=== PATIENT | female | born 1945 | race Caucasian/White ===

== ENCOUNTER 2018-03-16 12:02 | Emergency (ER) | payer OTHER ==
[~2018-03-16] VITALS: Ht 154.9 cm; Wt 62.6 kg
[2018-03-16 12:12] VITALS: BP_SYST 137
[2018-03-16 12:45] LABS: BILIRUBIN,URINE NEGATIVE (NEGATIVE); BLOOD, URINE 2+ (NEGATIVE); CLARITY/URINE CLEAR (CLEAR); COLOR,URINE YELLOW (YELLOW); GLUCOSE,URINE 3+ (NEGATIVE); KETONES,URINE NEGATIVE (NEGATIVE); LEUKOCYTE ESTERASE ,URINE 2+ (NEGATIVE); NITRITE, URINE NEGATIVE (NEGATIVE); PROTEIN URINE NEGATIVE (NEGATIVE); UROBILINOGEN,URINE 0.2 (0.2-1.0)
[2018-03-16 12:56] LABS: BACTERIA,URINE FEW /HPF (None Seen); MUCUS,URINE None Seen /LPF (None Seen); RBC,URINE 0-3 /HPF (0-3)
[2018-03-16] MEDS ORDERED: LEVOFLOXACIN 500 MG TABLET PO ONE (13:00)
[2018-03-16] MEDS ORDERED: PHENAZOPYRIDINE HCL 100 MG TABLET PO ONE (13:00)
[2018-03-16 13:35] VITALS: BP_SYST 137
== END 2018-03-16 13:35 | disposition home or self-care (01) ==
LOC: SED 12:02
DX: N39.0 Urinary tract infection, site not specified (principal); K21.9 Gastro-esophageal reflux disease without esophagitis; E11.9 Type 2 diabetes mellitus without complications; I10 Essential (primary) hypertension; Z88.8 Allergy status to other drugs, medicaments and biological substances
CPT/HCPCS: 81000-TC; 81003; 87086; 87186-TC; 99284

== ENCOUNTER 2018-08-18 13:16 | Emergency (ER) | payer OTHER ==
[~2018-08-18] VITALS: Ht 154.9 cm; Wt 61.2 kg
[2018-08-18 13:47] VITALS: BP_SYST 139
[2018-08-18] MEDS ORDERED: NACL 0.9% 1,000 ML IV ONE (13:58)
[2018-08-18] MEDS ORDERED: ONDANSETRON HCL 4 MG/2 ML VIAL IVP ONE (14:00)
[2018-08-18] MEDS ORDERED: MORPHINE 4 MG/ML INJ. SYRINGE ONE ×2 (14:17→16:13)
[2018-08-18] MEDS ORDERED: ONDANSETRON HCL 4 MG/2 ML VIAL ONE (14:18)
[2018-08-18] MEDS: MORPHINE 4 MG/ML INJ. SYRINGE IVP ONE ×2 (14:24→16:18)
[2018-08-18 14:41] LABS: PROTHROMBIN TIME 10.4 SECS (9.5-12.5)
[2018-08-18 14:45] LABS: ANION GAP 8 (5-15); CALCIUM 9.5 mg/dL (8.4-11.0); CHLORIDE 102 mmol/L (98-107); CREATININE 0.77 mg/dL (0.55-1.30); GLUCOSE 196 mg/dL (70-99); POTASSIUM 3.8 mmol/L (3.5-5.1); SODIUM SERUM 135 mmol/L (136-145); UREA NITROGEN, BLOOD 10 mg/dL (8-21)
[2018-08-18 14:52] LABS: ALANINE AMINOTRANSFERASE 41 U/L (12-78); ALBUMIN 3.6 g/dL (3.4-4.8); AMYLASE 35 U/L (0-100); ASPARTATE AMINOTRANSFERASE 19 U/L (10-37); LIPASE 135 U/L (73-393); TOTAL BILIRUBIN 0.6 mg/dL (0.0-1.0)
[2018-08-18 14:54] LABS: HEMOGLOBIN 14.3 g/dL (12.0-16.0); MEAN CORPUSCULAR HEMOGLOBIN 32 pg (27-31); MEAN CORPUSCULAR HGB CONC 33 % (32-36); MEAN CORPUSCULAR VOLUME 96 fL (79.0-98.0); PLATELET COUNT (AUTO) 255 K/uL (130-430); RED BLOOD CELL COUNT(AUTO) 4.49 MIL/uL (4.2-6.2); RED CELL DISTRIBUTION WIDTH 13.6 % (9.0-15.0); WHITE BLOOD COUNT (AUTO) 13.1 K/uL (4.8-10.8)
[2018-08-18 16:08] LABS: BAND % (MANUAL) 0 % (0-6); LYMPHOCYTES % (MANUAL) 49 % (20-46)
[2018-08-18 16:09] LABS: BASOPHILS % (MANUAL) 0 % (0-2); EOSINOPHILS % (MANUAL) 1 % (0-7); MONOCYTES % (MANUAL) 3 % (0-11)
[2018-08-18 17:15] VITALS: BP_SYST 133
== END 2018-08-18 17:12 | disposition home or self-care (01) ==
LOC: SED 13:16
DX: K29.70 Gastritis, unspecified, without bleeding (principal); E11.9 Type 2 diabetes mellitus without complications; K21.9 Gastro-esophageal reflux disease without esophagitis; I10 Essential (primary) hypertension; Z88.0 Allergy status to penicillin; Z90.49 Acquired absence of other specified parts of digestive tract; Z98.890 Other specified postprocedural states
CPT/HCPCS: 36415; 71045; 80053; 82150; 82550; 83605; 83690; 84484; 85007; 85027; 85610; 85730; 87040; 93005; 96361; 96374; 99284; J2270; J7030; J2405

== ENCOUNTER 2018-10-10 17:50 | Emergency (ER) | payer OTHER ==
[~2018-10-10] VITALS: Ht 152.4 cm; Wt 59.4 kg
[2018-10-10 18:13] VITALS: BP_SYST 130
[2018-10-10 19:56] LABS: HEMOGLOBIN 13.1 g/dL (12.0-16.0); MEAN CORPUSCULAR HEMOGLOBIN 32 pg (27-31); MEAN CORPUSCULAR HGB CONC 33 % (32-36); MEAN CORPUSCULAR VOLUME 97 fL (79.0-98.0); PLATELET COUNT (AUTO) 243 K/uL (130-430); RED BLOOD CELL COUNT(AUTO) 4.15 MIL/uL (4.2-6.2); RED CELL DISTRIBUTION WIDTH 14.8 % (9.0-15.0); WHITE BLOOD COUNT (AUTO) 13.3 K/uL (4.8-10.8)
[2018-10-10 19:57] LABS: BASOPHILS % (AUTO) 0.3 % (0.0-2.0); EOSINOPHILS # (AUTO) 0.1 K/uL (0.0-0.4); EOSINOPHILS % (AUTO) 0.6 % (0.0-4.0); LYMPHOCYTES # (AUTO) 3.4 K/uL (1.0-5.5); LYMPHOCYTES % (AUTO) 25.7 % (20.5-51.5); MONOCYTES % (AUTO) 7.2 % (1.7-9.3); NEUTROPHILS # (AUTO) 8.8 K/uL (1.8-7.7); NEUTROPHILS % (AUTO) 66.2 % (40.0-70.0)
[2018-10-10 20:08] LABS: ANION GAP 6 (5-15); CALCIUM 8.8 mg/dL (8.4-11.0); CHLORIDE 100 mmol/L (98-107); CREATININE 0.73 mg/dL (0.55-1.30); GLUCOSE 255 mg/dL (70-99); POTASSIUM 4.1 mmol/L (3.5-5.1); SODIUM SERUM 132 mmol/L (136-145); UREA NITROGEN, BLOOD 12 mg/dL (8-21)
[2018-10-10 20:14] LABS: ALANINE AMINOTRANSFERASE 43 U/L (12-78); ALBUMIN 3.6 g/dL (3.4-4.8); ASPARTATE AMINOTRANSFERASE 25 U/L (10-37); TOTAL BILIRUBIN 0.3 mg/dL (0.0-1.0)
[2018-10-10] MEDS ORDERED: NACL 0.9% 1,000 ML IV ONE (20:15)
[2018-10-10] MEDS ORDERED: KETOROLAC TROMETHAMINE 30 MG VIAL IVP ONE (20:15)
[2018-10-10 20:49] LABS: BILIRUBIN,URINE NEGATIVE (NEGATIVE); BLOOD, URINE TRACE (NEGATIVE); CLARITY/URINE CLEAR (CLEAR); COLOR,URINE YELLOW (YELLOW); GLUCOSE,URINE 2+ (NEGATIVE); KETONES,URINE NEGATIVE (NEGATIVE); LEUKOCYTE ESTERASE ,URINE TRACE (NEGATIVE); NITRITE, URINE NEGATIVE (NEGATIVE); PH,URINE 6.5 (5.0-8.0); PROTEIN URINE NEGATIVE (NEGATIVE); UROBILINOGEN,URINE 0.2 (0.2-1.0)
[2018-10-10 20:51] LABS: BACTERIA,URINE FEW /HPF (None Seen); RBC,URINE 0-3 /HPF (0-3)
[2018-10-10 21:25] VITALS: BP_SYST 130
== END 2018-10-10 21:24 | disposition home or self-care (01) ==
LOC: SED 17:50
DX: N39.0 Urinary tract infection, site not specified (principal); R10.11 Right upper quadrant pain; E11.9 Type 2 diabetes mellitus without complications; I10 Essential (primary) hypertension; K21.9 Gastro-esophageal reflux disease without esophagitis; Z90.49 Acquired absence of other specified parts of digestive tract; Z88.0 Allergy status to penicillin
CPT/HCPCS: 36415; 71250; 74176; 80053; 81000; 85025; 87086; 96374; 99284; J1885; J7030

== ENCOUNTER 2019-07-31 13:09 | Emergency (ER) | payer BC, OTHER ==
[~2019-07-31] VITALS: Ht 152.4 cm; Wt 59.0 kg
[2019-07-31 13:10] VITALS: BP_SYST 140
--- NOTE | 2019-07-31 13:10 | NUR ---
Patient triaged and placed in waiting room. VSS and patient appears in no acute distress at this time. Accompanied by SPOUSE, awaiting available bed, and MD notified of need for MSE.
--- NOTE | 2019-07-31 13:56 | NUR ---
PATIENT PRESENTS TO THE ER WITH HX OF URINARY FREQUENCY WITH DYSURIA FOR TWO DAYS; PATIENT STATES HER PAIN IS RECURRENT AND HAS BEEN TREATED ROUTINELY FOR UTI; NO TRAUMA, NO OTHER REMARKABLE S/S; PATIENT TO ER #2 AT 1345 AND ERMD EVALUATION AT 1415
[2019-07-31 14:00] LABS: BILIRUBIN,URINE 1+ (NEGATIVE); BLOOD, URINE TRACE (NEGATIVE); CLARITY/URINE CLEAR (CLEAR); COLOR,URINE ORANGE (YELLOW); GLUCOSE,URINE TRACE (NEGATIVE); KETONES,URINE NEGATIVE (NEGATIVE); LEUKOCYTE ESTERASE ,URINE 2+ (NEGATIVE); NITRITE, URINE POSITIVE (NEGATIVE); PH,URINE 5.5 (5.0-8.0); PROTEIN URINE 1+ (NEGATIVE)
[2019-07-31 14:03] LABS: BACTERIA,URINE MODERATE /HPF (None Seen); MUCUS,URINE 1+ /LPF (None Seen); WBC,URINE 50-80 /HPF (0-3)
[2019-07-31] MEDS ORDERED: cefTRIAXone 1 GM VIAL IM ONE (14:45)
[2019-07-31] MEDS ORDERED: cefTRIAXone 1 GM in LIDOCAINE 1%, 20 ML MDV 2.1 ML IM ONE (15:00)
[2019-07-31] MEDS ORDERED: LIDOCAINE 1%, 20 ML MDV 20 ML ONE (15:17)
[2019-07-31 15:25] VITALS: BP_SYST 134
--- NOTE | 2019-07-31 15:26 | NUR ---
Patient given written and verbal discharge instructions and verbalizes understanding. ER MD discussed with patient the results and treatment provided. Patient in stable condition. ID arm band removed. Rx of LEVAQUIN given. Patient educated on pain management and to follow up with PMD. Pain Scale 0/10. Opportunity for questions provided and answered. Medication side effect fact sheet provided.
== END 2019-07-31 15:26 | disposition home or self-care (01) ==
LOC: SED 13:09
DX: N39.0 Urinary tract infection, site not specified (principal); E11.9 Type 2 diabetes mellitus without complications; K21.9 Gastro-esophageal reflux disease without esophagitis; I10 Essential (primary) hypertension; Z88.0 Allergy status to penicillin
CPT/HCPCS: 81000; 87086; 87186; 96372; 99283; J0696; J2001

== ENCOUNTER 2019-09-28 13:39 | Emergency (ER) | payer BC ==
[~2019-09-28] VITALS: Ht 154.9 cm; Wt 64.4 kg
[2019-09-28 13:53] VITALS: BP_SYST 161
--- NOTE | 2019-09-28 14:00 | NUR ---
Ambulatory to bed 4
--- NOTE | 2019-09-28 14:11 | NUR ---
ER Dr. Alvarez at bedside examining patient.
[2019-09-28 14:48] LABS: BASOPHILS % (AUTO) 0.4 % (0.0-2.0); EOSINOPHILS # (AUTO) 0.2 K/uL (0.0-0.4); EOSINOPHILS % (AUTO) 1.4 % (0.0-4.0); HEMATOCRIT 39.7 % (36-48); HEMOGLOBIN 13.2 g/dL (12.0-16.0); LYMPHOCYTES # (AUTO) 4.9 K/uL (1.0-5.5); LYMPHOCYTES % (AUTO) 43.8 % (20.5-51.5); MEAN CORPUSCULAR HEMOGLOBIN 32 pg (27-31); MEAN CORPUSCULAR HGB CONC 33 % (32-36); MEAN CORPUSCULAR VOLUME 97 fL (79.0-98.0); MONOCYTES # (AUTO) 0.6 K/uL (0.0-1.0); MONOCYTES % (AUTO) 5.5 % (1.7-9.3); NEUTROPHILS # (AUTO) 5.4 K/uL (1.8-7.7); NEUTROPHILS % (AUTO) 48.9 % (40.0-70.0); PLATELET COUNT (AUTO) 253 K/uL (130-430); RED BLOOD CELL COUNT(AUTO) 4.11 MIL/uL (4.2-6.2); RED CELL DISTRIBUTION WIDTH 14.1 % (9.0-15.0); WHITE BLOOD COUNT (AUTO) 11.1 K/uL (4.8-10.8)
[2019-09-28 14:53] LABS: ANION GAP 7 (5-15); CALCIUM 9.1 mg/dL (8.4-11.0); CHLORIDE 103 mmol/L (98-107); CREATININE 0.66 mg/dL (0.55-1.30); GLUCOSE 271 mg/dL (70-99); POTASSIUM 3.9 mmol/L (3.5-5.1); SODIUM SERUM 139 mmol/L (136-145); UREA NITROGEN, BLOOD 13 mg/dL (8-21)
[2019-09-28 14:55] LABS: INR 1.1 (0.8-1.2); PROTHROMBIN TIME 11.3 SECS (9.5-12.5)
[2019-09-28 14:58] LABS: ALANINE AMINOTRANSFERASE 45 U/L (12-78); ALBUMIN 3.3 g/dL (3.4-4.8); AMYLASE 36 U/L (0-100); ASPARTATE AMINOTRANSFERASE 21 U/L (10-37); LIPASE 137 U/L (73-393); TOTAL BILIRUBIN 0.4 mg/dL (0.0-1.0)
--- NOTE | 2019-09-28 15:30 | NUR ---
Patient resting quietly. No acute distress noted. Vital signs within normal range.
[2019-09-28 16:55] VITALS: BP_SYST 127
--- NOTE | 2019-09-28 16:55 | NUR ---
Patient given written and verbal discharge instructions and verbalizes understanding. ER MD discussed with patient the results and treatment provided. Patient in stable condition. ID arm band removed. Rx of omeprazole given. Patient educated on pain management and to follow up with PMD. Pain Scale 0/10. Opportunity for questions provided and answered. Medication side effect fact sheet provided.
== END 2019-09-28 16:55 | disposition home or self-care (01) ==
LOC: SED 13:39
DX: K62.5 Hemorrhage of anus and rectum (principal); K29.71 Gastritis, unspecified, with bleeding; K21.9 Gastro-esophageal reflux disease without esophagitis; E11.9 Type 2 diabetes mellitus without complications; I10 Essential (primary) hypertension; K76.0 Fatty (change of) liver, not elsewhere classified; Z88.0 Allergy status to penicillin
CPT/HCPCS: 36415; 80053; 82150-TC; 83690-TC; 85025; 85610-TC; 85730-TC; 86886; 86900; 86901; 99284

== ENCOUNTER 2021-06-05 11:39 | Emergency (ER) | payer BC ==
[~2021-06-05] VITALS: Ht 152.4 cm; Wt 60.3 kg
--- NOTE | 2021-06-05 11:39 | NUR ---
BROUGHT BACK TO BED #6 AND TRIAGED. REPORT GIVEN TO CHRISTOPHER
[2021-06-05 11:40] VITALS: BP_SYST 133
--- NOTE | 2021-06-05 11:55 | NUR ---
ER at bedside examining patient.
--- NOTE | 2021-06-05 12:27 | NUR ---
Pt. bib with complaint that for last 3 days when she takes her pills it feels like they are getting stuck and causes pain, hx. of heartburn but this is different per pt., no c/o pain at this time. EKG done as ordered
[2021-06-05 12:48] LABS: BASOPHILS # (AUTO) 0.1 K/uL (0.0-0.2); BASOPHILS % (AUTO) 0.5 % (0.0-2.0); EOSINOPHILS # (AUTO) 0.1 K/uL (0.0-0.4); EOSINOPHILS % (AUTO) 0.4 % (0.0-4.0); HEMATOCRIT 38.9 % (36-48); HEMOGLOBIN 13.1 g/dL (12.0-16.0); LYMPHOCYTES % (AUTO) 41.5 % (20.5-51.5); MEAN CORPUSCULAR HEMOGLOBIN 32 pg (27-31); MEAN CORPUSCULAR HGB CONC 34 % (32-36); MEAN CORPUSCULAR VOLUME 96 fL (79.0-98.0); MONOCYTES # (AUTO) 1.1 K/uL (0.0-1.0); MONOCYTES % (AUTO) 7.3 % (1.7-9.3); NEUTROPHILS # (AUTO) 7.2 K/uL (1.8-7.7); NEUTROPHILS % (AUTO) 50.3 % (40.0-70.0); PLATELET COUNT (AUTO) 201 K/uL (130-430); RED BLOOD CELL COUNT(AUTO) 4.07 MIL/uL (4.2-6.2); RED CELL DISTRIBUTION WIDTH 14.2 % (9.0-15.0); WHITE BLOOD COUNT (AUTO) 14.4 K/uL (4.8-10.8)
[2021-06-05 12:57] LABS: ANION GAP 9 (5-15); CALCIUM 8.7 mg/dL (8.4-11.0); CHLORIDE 97 mmol/L (98-107); CREATININE 0.63 mg/dL (0.55-1.30); GLUCOSE 121 mg/dL (70-99); POTASSIUM 3.8 mmol/L (3.5-5.1); SODIUM SERUM 131 mmol/L (136-145); UREA NITROGEN, BLOOD 11 mg/dL (8-21)
[2021-06-05 13:01] LABS: PROTHROMBIN TIME 10.7 SECS (9.5-12.5)
[2021-06-05 13:02] LABS: ALANINE AMINOTRANSFERASE 43 U/L (12-78); ALBUMIN 3.7 g/dL (3.4-4.8); AMYLASE 38 U/L (0-100); ASPARTATE AMINOTRANSFERASE 24 U/L (10-37); LACTATE DEHYDROGENASE 140 U/L (81-234); LIPASE 87 U/L (73-393); TOTAL BILIRUBIN 0.4 mg/dL (0.0-1.0)
[2021-06-05 13:14] LABS: C-REACTIVE PROTEIN QUANT < 0.2 mg/dL (0-0.5)
--- NOTE | 2021-06-05 13:16 | NUR ---
Pt. OOB to bathroom did not obtain urine specimen
[2021-06-05] MEDS ORDERED: OMEP40CA20 PO (14:08)
[2021-06-05] MEDS ORDERED: HYDR-3917 PO (14:08)
--- NOTE | 2021-06-05 14:45 | NUR ---
Patient given written and verbal discharge instructions and verbalizes understanding. ER Dr. Alvarez discussed with patient the results and treatment provided. Patient in stable condition. ID arm band removed. Rx of [place] and omeprazole given. Patient educated on pain management and to follow up with PMD. Pain Scale 0. Opportunity for questions provided and answered. Medication side effect fact sheet provided.
[2021-06-05 14:46] VITALS: BP_SYST 112
[2021-06-05 14:53] LABS: BILIRUBIN,URINE NEGATIVE (NEGATIVE); CLARITY/URINE CLEAR (CLEAR); COLOR,URINE YELLOW (YELLOW); GLUCOSE,URINE NEGATIVE (NEGATIVE); KETONES,URINE NEGATIVE (NEGATIVE); LEUKOCYTE ESTERASE ,URINE NEGATIVE (NEGATIVE); NITRITE, URINE NEGATIVE (NEGATIVE); PH,URINE 6.5 (5.0-8.0); PROTEIN URINE NEGATIVE (NEGATIVE); UROBILINOGEN,URINE 0.2 (0.2-1.0)
[2021-06-05 15:09] LABS: BLOOD, URINE TRACE (NEGATIVE)
[2021-06-05 15:26] LABS: BACTERIA,URINE RARE /HPF (None Seen); WBC,URINE 0-3 /HPF (0-3)
== END 2021-06-05 14:45 | disposition home or self-care (01) ==
LOC: SED 11:39
DX: R10.13 Epigastric pain (principal); I10 Essential (primary) hypertension; E11.9 Type 2 diabetes mellitus without complications; K21.9 Gastro-esophageal reflux disease without esophagitis; Z88.0 Allergy status to penicillin
CPT/HCPCS: 36415; 76376; 80053; 81000; 82150; 83605; 83615; 83690; 84484; 85025; 85610-TC; 85730-TC; 86140; 93005; 99285

== ENCOUNTER 2022-12-08 15:58 | Emergency (ER) | payer BC ==
[~2022-12-08] VITALS: Ht 154.9 cm; Wt 60.3 kg
[~2022-12-08 15:58] MED LIST: HYDR-3917 PO; OMEP40CA20 PO
[2022-12-08 16:00] VITALS: BP_SYST 133
--- NOTE | 2022-12-08 16:00 | NUR ---
Patient triaged and placed in waiting room. VSS and patient appears in no acute distress at this time. Accompanied by SPOUSE, awaiting available bed, and MD notified of need for MSE.
--- NOTE | 2022-12-08 16:54 | NUR ---
DR GILL OUT TO TRIAGE ROOM FOR EVALUATION
[2022-12-08] MEDS ORDERED: HYDROcodone/ACETAMIN 7.5-325 MG TAB PO ONE (17:00)
[2022-12-08] MEDS ORDERED: KETOROLAC TROMETHAMINE 30 MG VIAL IM ONE (17:00)
--- NOTE | 2022-12-08 17:52 | NUR ---
BROUGHT BACK TO [facility]
[2022-12-08 18:00] LABS: BILIRUBIN,URINE NEGATIVE (NEGATIVE); CLARITY/URINE CLEAR (CLEAR); COLOR,URINE YELLOW (YELLOW); GLUCOSE,URINE 1+ (NEGATIVE); KETONES,URINE NEGATIVE (NEGATIVE); LEUKOCYTE ESTERASE ,URINE NEGATIVE (NEGATIVE); NITRITE, URINE NEGATIVE (NEGATIVE); PROTEIN URINE NEGATIVE (NEGATIVE); UROBILINOGEN,URINE 0.2 (0.2-1.0)
[2022-12-08 18:07] LABS: BACTERIA,URINE None Seen /HPF (None Seen); BLOOD, URINE TRACE (NEGATIVE); MUCUS,URINE None Seen /LPF (None Seen); RBC,URINE NONE SEEN /HPF (0-3); WBC,URINE 0-3 /HPF (0-3)
--- NOTE | 2022-12-08 19:35 | NUR ---
Received verbal report from outgoing nurse, MELISSA Vila. Received pt awake and alert sitting in hallway chair, no s/s of discomfort noted. Vitals taken.
[2022-12-08] MEDS ORDERED: ACET-2634 PO (20:18)
[2022-12-08 20:21] VITALS: BP_SYST 139
--- NOTE | 2022-12-08 20:21 | NUR ---
Patient given written and verbal discharge instructions and verbalizes understanding. ER Dr Juares discussed with patient the results and treatment provided. Patient in stable condition. ID arm band removed. Rx of Tylenol given. Patient educated on pain management and to follow up with PMD. Pain Scale 0/10. Opportunity for questions provided and answered. Medication side effect fact sheet provided.
== END 2022-12-08 20:21 | disposition home or self-care (01) ==
LOC: SED 15:58
DX: M54.50 Low back pain, unspecified (principal); G89.29 Other chronic pain; E11.9 Type 2 diabetes mellitus without complications; K21.9 Gastro-esophageal reflux disease without esophagitis; I10 Essential (primary) hypertension; Z88.0 Allergy status to penicillin; Z79.899 Other long term (current) drug therapy
CPT/HCPCS: 99284; 81000; 72100; 96372; J1885

== ENCOUNTER 2023-10-08 03:59 | Emergency (ER) | payer BC ==
[~2023-10-08] VITALS: Ht 154.9 cm; Wt 59.0 kg
[~2023-10-08 03:59] MED LIST changes: +ACET-2634 PO
[2023-10-08 04:17] VITALS: BP_SYST 138; PULSE 80; RESP 16; TEMP 97.5; O2SAT 95
[2023-10-08 05:01] VITALS: BP_SYST 133; PULSE 82; RESP 18; TEMP 97.7; O2SAT 96
== END 2023-10-08 05:00 | disposition home or self-care (01) ==
LOC: SED 03:59
DX: R04.2 Hemoptysis (principal); R05.9 Cough, unspecified; R10.30 Lower abdominal pain, unspecified; E11.9 Type 2 diabetes mellitus without complications; I10 Essential (primary) hypertension; K21.9 Gastro-esophageal reflux disease without esophagitis; Z88.0 Allergy status to penicillin; Z79.899 Other long term (current) drug therapy
CPT/HCPCS: 71045; 99283